=== PATIENT | male | born 1990 | race Caucasian/White ===

== ENCOUNTER 2022-04-03 10:52 | Emergency (ER) | payer BC, SELFPAY ==
[2022-04-03 11:20] VITALS: BP 149/96; PULSE 101; RESP 18; TEMP 37.3; O2SAT 98; BMI 32.3
--- NOTE | 2022-04-03 11:27 | EXP.UTC ---
Discharge Plan Referrals Follow up/Referrals: Provider,Referral, [Primary Care Provider] - See instructions Discharge ED Provider: [facility] General Stated complaint: stomach pain Mode of Arrival: Ambulatory Source of Information: Patient Limitations: No Limitations Time Seen by Provider: 04/03/22 11:27 Description of Symptoms (Recalled from Triage Doc. by RN): ABDMOMINAL PAIN SINCE FRIDAY, NO BOWEL MOVEMENT SINCE FRIDAY. HEENT Symptoms (Recalled from RN notes): No Resp Symptoms (Recalled from RN notes): No Skin Symptoms (Recalled from RN notes): No MS Symptoms (Recalled from RN notes): No Functional Status (Recalled from RN notes): NA History of Present Illness Provider Complaint: Patient states that he eat a [employer] on Friday and started having severe abdominal pain States that he thought he just eat too much so he laid in the floor on his stomach and stuff thinking it would help but didnt States that yesterday was worse so he thought he may have been constipated so he took and xlax and did have some pebble like stool but today he is having sharp pain agains in his upper abdomen States that he is passing gas and last normal BM was on Friday morning States that today pain is bad but not as bad as yesterday he just feels very uncomfortable Related Data Allergies Allergy/AdvReac Type Severity Reaction Status Date / Time No Known Allergies Allergy Verified 04/03/22 11:26 Worker's Comp Is this a Worker's Comp case?: No PFSH PFSH Social History Smoking Status: Unknown if ever smoked alcohol intake: never current occupational status: employed Travel in the last 8 weeks: None ROS Obtained: Yes All systems reviewed & no additional complaints except as documented and Yes Systems reviewed as appropriate & no additional complaints except as documented Constitutional Constitutional: Reports system reviewed and no additional complaints, except as documented, Reports as per HPI and Denies fever(s) ENT Ears, Nose, Mouth, and Throat: Reports system reviewed and no additional complaints, except as documented and Reports as per HPI Cardiovascular Cardiovascular: Reports system reviewed and no additional complaints, except as documented and Reports as per HPI Respiratory Respiratory: Reports system reviewed and no additional complaints, except as documented and Reports as per HPI Gastrointestinal Gastrointestingal: Reports system reviewed and no additional complaints, except as documented, as per HPI and abdominal pain; Denies vomiting Comments: reports normal BM on friday and Friday morning Physical Exam General General appearance: alert and in no apparent distress Respiratory Respiratory exam: Present normal lung sounds bilaterally; Absent respiratory distress Cardiovascular Cardiovascular exam: Present regular rate and normal rhythm Abdominal Exam Abdominal exam: Present tenderness Abdominal tenderness: Present epigastrium, diffuse and moderate (reports pain sharp and uncomfortable /10) Neurological Exam Neurological exam: Present alert, oriented X3 and normal gait Medical Decision Making Fly Inquiry Pt receiving controlled substance: No Fly was queried for this patient: No Vital Signs: 04/03/22 11:20 Temperature 99.1 F Temperature Source Oral Pulse Rate [Radial] 101 H Respiratory Rate 18 Blood Pressure [Right Arm] 149/96 H Blood Pressure Mean [Right Arm] 113 Blood Pressure Source [Right Arm] Automatic Cuff Blood Pressure Position [Right Arm] Sitting 02 Sat by Pulse Oximetry 98 Oxygen Delivery Method Room Air Medical Decision Narrative: Patient reports abdominal pain since Friday reports is a little better since Friday but still reports pain as sharp at times and 7/10 and just uncomfortable Discussed with patient and will transfer to the ED for further work up and evaluation and patient agreed Patient to be moved to room 10
--- NOTE | 2022-04-03 11:40 | PC.NURSE ---
PT TO ED ROOM 10 AT THIS TIME. REPORT GIVEN TO Teodora HARDING RN
--- NOTE | 2022-04-03 11:49 | CT_ITS ---
FINAL REPORT TECHNIQUE: After the administration of intravenous contrast, axial images were obtained through the abdomen and pelvis by computed tomography. This study was performed with technique to keep radiation doses as low as reasonably achievable, (ALARA). Individualized dose reduction techniques using automated exposure control or adjustment of the MA and/or KV according to the patient's size were employed. CLINICAL HISTORY: upper abdominal/lower chest pain FINDINGS: Abdomen: The liver demonstrates mild fatty infiltration. The spleen is enlarged up to 15 cm in length. The adrenals are normal. There is stranding adjacent to the tail the pancreas consistent with mild, acute pancreatitis. The kidneys enhance appropriately. The aorta is normal in caliber. There is no free fluid or adenopathy. Pelvis: The appendix is normal. There is a small amount of pelvic free fluid. The urinary bladder is unremarkable. There is no adenopathy. IMPRESSION: Findings consistent with mild, acute pancreatitis. Fatty infiltration of the liver and splenomegaly. Reviewed, Interpreted and Dictated by Riley Franklin III, MD Transcribed by Maggie Truong Authenticated and [facility]
--- NOTE | 2022-04-03 11:49 | CT_ITS ---
FINAL REPORT TECHNIQUE: Postcontrast axial images of the chest were performed in a CTA protocol. This study was performed with techniques to keep radiation doses as low as reasonably achievable, (ALARA). Individualized dose reduction technique using automated exposure control or adjustment of mA and/or kV according to the patient's size were employed. CLINICAL HISTORY: upper abdominal/lower chest pain FINDINGS: The heart is normal in size. No adenopathy is identified. No pleural or pericardial effusion is identified. The thoracic aorta is normal in caliber with no focal aneurysm or dissection identified. There is no filling defect to suggest pulmonary embolism. No lung infiltrate or mass is identified. There is mild bibasilar atelectasis or scarring. IMPRESSION: No evidence for PE on this exam. Mild bibasilar atelectasis or scarring. Reviewed, Interpreted and Dictated by Riley Franklin III, MD Transcribed by Maggie Truong Authenticated and [facility]
[2022-04-03 11:50] VITALS: BP 169/91; PULSE 120; RESP 16; TEMP 36.8; O2SAT 98; BMI 19.6
--- NOTE | 2022-04-03 12:00 | HMH.EDGENADL ---
Discharge Plan Disposition Patient Disposition: Home, Self-Care Condition: Good Prescriptions Prescriptions: New oxycodone 5 mg tablet 5 mg PO Q8H PRN (Reason: pain) Qty: 12 0RF ondansetron 4 mg tablet,disintegrating 4 mg PO Q8H PRN (Reason: nausea and vomiting) 4 Days Qty: 12 0RF Referrals Follow up/Referrals: Provider,Referral, MD [Primary Care Provider] - See instructions Activity Restrictions/Add. Instructions Additional Instructions/Restrictions: You were evaluated in the emergency department today for abdominal pain and diagnosed with pancreatitis. Please knot picker cloth your prescriptions at the pharmacy and take them as needed for symptoms. Orally hydrate is much as possible. Follow-up with your primary care provider over the next 48 hours. Return to the emergency department for any new or worsening symptoms. Clinical Impressions Clinical Impression: Pancreatitis Qualifiers: Chronicity: acute Pancreatitis type: idiopathic Acute pancreatitis complication: unspecified Qualified Code(s): K85.00 - Idiopathic acute pancreatitis without necrosis or infection Stand Alone Forms Stand Alone Forms: Work/School Release Instructions Patient Instructions: Acute Pancreatitis, DI for Pancreatitis, DI for Acute Abdominal Pain Discharge ED Provider: Merissa Sousa General Adult HPI General Chief complaint: Abdominal Pain Stated complaint: stomach pain Time Seen by Provider: 04/03/22 11:27 Mode of Arrival: Ambulatory Source of Information: Patient Limitations: No Limitations Description of Symptoms (Recalled from ER Triage Doc. by RN): ABDMOMINAL PAIN SINCE FRIDAY, NO BOWEL MOVEMENT SINCE FRIDAY. History of Present Illness HPI narrative: This patient is a 31-year-old male with history of constipation presenting to the emergency department for evaluation of abdominal pain. It is epigastric, severe, and constant in nature. He has not been able to eat or drink much. He did eat some breakfast this morning, however his pain got worse. He denies having a bowel movement since Friday. This does not feel typical of his prior constipation issues. He admits to nausea, but no vomiting. No fevers, chills, blood in stools, dark tarry stools, or other concerns. He does admit to some lower chest pain that is worse when taking a deep breath and coughing. Nothing seems to make his symptoms better. Eating, coughing, and deep breathing become worse. Related Data Previous Rx's Medication Instructions Recorded ondansetron 4 mg disintegrating 4 mg PO Q8H PRN nausea and 04/03/22 tablet vomiting 4 days #12 tabs oxycodone 5 mg tablet 5 mg PO Q8H PRN pain #12 tabs 04/03/22 Allergies Allergy/AdvReac Type Severity Reaction Status Date / Time No Known Allergies Allergy Verified 04/03/22 11:26 PFSH PFSH Social History Smoking Status: Unknown if ever smoked alcohol intake: never current occupational status: employed Travel in the last 8 weeks: None ROS Obtained: Yes All systems reviewed & no additional complaints except as documented 14 point review of systems obtained and negative except otherwise mentioned in HPI. Physical Exam General General appearance: alert and anxious Head Head exam: atraumatic and normocephalic Eye Eye exam: Present normal appearance, PERRL and EOMI ENT ENT exam: Present normal exam and normal oropharynx Neck Neck exam: Present normal inspection Chest Chest inspection: Present normal inspection and symmetric chest wall rise Respiratory Respiratory exam: Present normal lung sounds bilaterally; Absent respiratory distress, wheezes or stridor Cardiovascular Cardiovascular exam: Present normal rhythm and tachycardia Abdominal Exam Abdominal exam: Present soft and tenderness (Epigastric); Absent distention, guarding or rebound Extremities Exam Extremities exam: Present normal inspection; Absent tenderness or edema Back Exam Back exam:
[2022-04-03 12:05] LABS: Basophils # 0.1 K/mm3 (0-0.2); Basophils % 0.8 % (0.1-2.0); Eosinophils # 0.1 K/mm3 (0.0-0.4); Eosinophils % 1.1 % (0.1-12.0); Hematocrit 47.3 % (42.0-52.0); Hemoglobin 16.4 g/dL (14.1-18.0); Mean Corpuscular HGB Conc 34.6 g/dL (31.8-35.4); Mean Corpuscular Hemoglobin 30.2 pg (27.0-31.2); Mean Corpuscular Volume 87.4 fl (80-94); Mean Platelet Volume 8.2 fl (7.4-10.4); Monocytes # 0.6 K/mm3 (0.1-1.0); Monocytes % 6.1 % (1.7-9.3); Neutrophils # 6.7 K/mm3 (1.8-7.8); Platelet Count 301 K/mm3 (142-424); Red Blood Count 5.41 M/mm3 (4.60-6.20); Red Cell Distribution Width 13.1 % (11.5-17.5); White Blood Count 9.5 K/mm3 (4.8-10.8)
[2022-04-03 12:14] LABS: Chloride 97 mmol/L (98-107); Potassium 3.4 mmoL/L (3.5-5.1); Sodium 139 mmol/L (136-145)
[2022-04-03 12:16] LABS: Alanine Aminotransferase 35 U/L (12-78); Aspartate Amino Transferase 34 U/L (17-59); Blood Urea Nitrogen 12 mg/dl (9-20); Creatinine Clearance Estimated 169 mL/min (50-200); Estimated Glomerular Filt Rate 97 ml/min (>60); GFR (African American) 118 ML/MIN (>60)
[2022-04-03 12:17] LABS: Albumin Level 4.7 g/dl (3.5-5.0); Albumin/Globulin Ratio 1.4 (1.1-1.8); Alkaline Phosphatase 64 U/L (38-126); Anion Gap 15.4 mEq/L (5-15); Bilirubin,Total 1.1 mg/dl (0.2-1.3); Calcium 8.9 mg/dl (8.4-10.2); Carbon Dioxide 30 mmol/L (22.0-30.0); Globulin 3.4 g/dL (1.3-3.2); Glucose 106 mg/dl (74-100); Lipase 1597 U/L (23-300); Total Protein,Serum 8.1 g/dl (6.3-8.2)
--- NOTE | 2022-04-03 12:17 | ECG_ITS ---
APPROVED REPORT Exam: Resting ECG HR:104 bpm ECG Measurements Heart Rate 104 AXES AZ 132 P 50 QRSd 92 QRS 30 QT 321 T 29 QTc 381 Conclusion SINUS TACHYCARDIA POSSIBLE LEFT ATRIAL ENLARGEMENT [-0.1mV P-WAVE IN V1/V2] POSSIBLE RIGHT VENTRICULAR CONDUCTION DELAY [RSR (QR) IN V1/V2] NONSPECIFIC T-WAVE ABNORMALITY ABNORMAL RHYTHM ECG UNCONFIRMED REPORT Electronically signed by : Marshall Lopez MD 04/03/2022 21:56:04
[2022-04-03 13:00] VITALS: BP 123/90; PULSE 96; RESP 18; O2SAT 98
--- NOTE | 2022-04-03 14:06 | PC.NURSE ---
PT DOING A PO CHALLENGE WITH NO PROBLEMS
[2022-04-03 15:10] VITALS: BP 110/85; PULSE 88; RESP 20; TEMP 36.9; O2SAT 97
== END 2022-04-03 15:27 | disposition home or self-care (01) ==
LOC: UTC 11:03 → ER 11:44
PROVIDERS: Emergency Provider Emergency Medicine
DX: K85.90 Acute pancreatitis without necrosis or infection, unspecified (principal)
CPT/HCPCS: 71275; 74177; 80053; 83690; 85025; 93005; 96365; 96375; 99285; J2405; Q9967

== ENCOUNTER 2023-05-13 10:19 | Emergency (ER) | payer BC, SELFPAY ==
--- NOTE | 2023-05-13 10:48 | EXP.UTC ---
Discharge Plan Disposition Patient Disposition: Home, Self-Care Condition: Good Prescriptions Prescriptions: New prednisone 10 mg tablet 10 mg PO BID 3 Days Qty: 6 0RF amoxicillin [amoxicillin] 400 mg/5 mL suspension for reconstitution 875 mg PO BID 10 Days Qty: 218.75 0RF wnucapixjdyqypr-deqgvqtws-OA [Bromfed DM] 2-30-10 mg/5 mL Syrup 5 ml PO Q6H PRN (Reason: Cough) Qty: 240 0RF No Action oxycodone 5 mg tablet 5 mg PO Q8H PRN (Reason: pain) Qty: 12 0RF ondansetron 4 mg tablet,disintegrating 4 mg PO Q8H PRN (Reason: nausea and vomiting) 4 Days Qty: 12 0RF Referrals Follow up/Referrals: Nazia Escalante [Primary Care Provider] - See instructions Activity Restrictions/Add. Instructions Additional Instructions/Restrictions: Drink plenty of fluids. Take tylenol or ibuprofen for pain or fever. Take the medications as directed. Follow up with your regular doctor. GO TO THE ER FOR ANY WORSENING SYMPTOMS Clinical Impressions Clinical Impression: Strep throat Stand Alone Forms Stand Alone Forms: Work/School Release Instructions Patient Instructions: DI for Strep Throat, Strep Throat Discharge ED Provider: Ron Escobedo [facility] General Stated complaint: sore throat, body aches, dizziness Time Seen by Provider: 05/13/23 10:48 History of Present Illness Provider Complaint: He states that for the past 2 days he has had sore throat, chills, body aches and low grade fever. Related Data Previous Rx's Medication Instructions Recorded ondansetron 4 mg disintegrating 4 mg PO Q8H PRN nausea and 04/03/22 tablet vomiting 4 days #12 tabs oxycodone 5 mg tablet 5 mg PO Q8H PRN pain #12 tabs 04/03/22 amoxicillin 400 mg/5 mL oral 875 mg (10.9375 mL) PO BID 10 days 05/13/23 suspension #218.75 mL topqluhbhfcwphi-kosvsrjmgbxybba-ZN 5 ml PO Q6H PRN Cough #240 mL 05/13/23 2 mg-30 mg-10 mg/5 mL oral syrup (Bromfed DM) prednisone 10 mg tablet 10 mg PO BID 3 days #6 tabs 05/13/23 Allergies Allergy/AdvReac Type Severity Reaction Status Date / Time No Known Allergies Allergy Verified 04/03/22 11:26 [facility] Disclaimer: The information contained in this section may have been updated after the patient was seen, as this information can be updated by other users. Social History Smoking Status: Unknown if ever smoked alcohol intake: never current occupational status: employed Travel in the last 8 weeks: None ROS Obtained: Yes All systems reviewed & no additional complaints except as documented Constitutional Constitutional: Reports chills and Reports fever(s) Eyes Eyes: Denies eye discharge ENT Ears, Nose, Mouth, and Throat: Reports as per HPI Cardiovascular Cardiovascular: Denies chest pain Respiratory Respiratory: Denies chest congestion and Reports cough Gastrointestinal Gastrointestingal: Reports nausea; Denies abdominal pain, constipation, cramping, diarrhea or vomiting Musculoskeletal Musculoskeletal: Denies arthralgias Integumentary/Breasts Skin/Breast: Denies rash Neurologic Neurologic: Denies paresthesias Physical Exam General General appearance: alert and in no apparent distress Head Head exam: atraumatic, normocephalic and normal inspection Eye Eye exam: Present normal appearance, PERRL and EOMI ENT ENT exam: Present mucous membranes moist and normal external ear exam Expanded ENT Exam TM/Canal exam: Bilateral TM: erythema and bulging Nose exam: Absent sinus tenderness Mouth exam: Present normal external inspection; Absent drooling Teeth exam: Present normal inspection Throat exam: Present tonsillar erythema, tonsillomegaly and tonsillar exudate Neck Neck exam: Present normal inspection, full ROM and trachea midline; Absent tenderness, meningismus or lymphadenopathy Chest Chest inspection: Present normal inspection and symmetric chest wall rise; Absent tenderness Respiratory Respiratory ex
[2023-05-13 11:30] VITALS: BP 154/87; PULSE 110; RESP 18; TEMP 37.1; O2SAT 97; BMI 33.7
[2023-05-13 11:39] LABS: UTC Strep Screen (Rapid) Positive (Negative)
[2023-05-13 11:40] LABS: UTC Influenza A Antigen Negative (Negative); UTC Influenza B Antigen Negative (Negative)
[2023-05-13 12:08] VITALS: BP 154/87; PULSE 110; RESP 18; TEMP 37.1; O2SAT 97
== END 2023-05-13 12:00 | disposition home or self-care (01) ==
PROVIDERS: Emergency Provider Nurse Practitioner Family; PCP Nurse Practitioner Family
DX: J02.0 Streptococcal pharyngitis (principal); R07.0 Pain in throat; R50.9 Fever, unspecified
CPT/HCPCS: 87804; 87880; 99204; 99212; G0463

== ENCOUNTER 2023-12-12 18:24 | Emergency (ER) | payer BC, SELFPAY ==
[2023-12-12 18:35] VITALS: BP 142/92; PULSE 94; RESP 18; TEMP 37.4; O2SAT 99; BMI 32.3
--- NOTE | 2023-12-12 18:45 | EXP.UTC ---
Discharge Plan Disposition Patient Disposition: Home, Self-Care Condition: Good Prescriptions Prescriptions: New amoxicillin 875 mg tablet 875 mg PO Q12H Qty: 20 0RF methylprednisolone 4 mg Tablets,Dose Pack 4 mg PO DIRECTED 6 Days Qty: 21 0RF Rx Instructions: Take 1 pack as directed for 6 days bgbtcfqwxxhtejw-pheskeikk-UP [Bromfed DM] 2-30-10 mg/5 mL Syrup 5 ml PO Q6H PRN (Reason: Cough) Qty: 240 0RF Referrals Follow up/Referrals: Nazia Escalante [Primary Care Provider] - See instructions Activity Restrictions/Add. Instructions Additional Instructions/Restrictions: Drink plenty of fluids. Take tylenol or ibuprofen for pain or fever. Take the medications as directed. Follow up with your regular doctor. GO TO THE ER FOR ANY WORSENING SYMPTOMS Clinical Impressions Clinical Impression: Pharyngitis Instructions Patient Instructions: Sore Throat, DI for Pharyngitis/Tonsillopharyngitis -- Adult, Methylprednisolone, Amoxicillin Discharge ED Provider: Ron Escobedo [facility] General Stated complaint: sore throat Mode of Arrival: Ambulatory Source of Information: Patient Limitations: No Limitations Time Seen by Provider: 12/12/23 18:45 Description of Symptoms (Recalled from Triage Doc. by RN): PATIENT C/O SORE THROAT SINCE FRIDAY MORNING HEENT Symptoms (Recalled from RN notes): Yes Resp Symptoms (Recalled from RN notes): No Skin Symptoms (Recalled from RN notes): No MS Symptoms (Recalled from RN notes): No Functional Status (Recalled from RN notes): WNL Related Data Previous Rx's Medication Instructions Recorded amoxicillin 875 mg tablet 875 mg PO Q12H #20 tabs 12/12/23 tcmzqcrfdlsfilf-taapmpphhrzbnlp-YM 5 ml PO Q6H PRN Cough #240 mL 12/12/23 2 mg-30 mg-10 mg/5 mL oral syrup (Bromfed DM) methylprednisolone 4 mg tablets in 4 mg PO DIRECTED 6 days #21 tabs 12/12/23 a dose pack Allergies Allergy/AdvReac Type Severity Reaction Status Date / Time No Known Allergies Allergy Verified 05/13/23 11:51 Worker's Comp Is this a Worker's Comp case?: No [facility] Disclaimer: The information contained in this section may have been updated after the patient was seen, as this information can be updated by other users. Medical History (Updated 12/12/23 @ 19:12 by Ron Escobedo APRN) No significant past medical history Surgical History (Updated 12/12/23 @ 18:41 by Anahi Aquino RN) No significant past surgical history Social History Smoking Status: Unknown if ever smoked alcohol intake: never current occupational status: employed Travel in the last 8 weeks: None ROS Obtained: Yes All systems reviewed & no additional complaints except as documented Constitutional Constitutional: Reports chills and Reports fever(s) Eyes Eyes: Denies eye discharge ENT Ears, Nose, Mouth, and Throat: Reports as per HPI Cardiovascular Cardiovascular: Denies chest pain Respiratory Respiratory: Denies chest congestion and Reports cough Gastrointestinal Gastrointestingal: Reports nausea; Denies abdominal pain, constipation, cramping, diarrhea or vomiting Musculoskeletal Musculoskeletal: Denies arthralgias Integumentary/Breasts Skin/Breast: Denies rash Neurologic Neurologic: Denies paresthesias Physical Exam General General appearance: alert and in no apparent distress Head Head exam: atraumatic, normocephalic and normal inspection Eye Eye exam: Present normal appearance, PERRL and EOMI ENT ENT exam: Present mucous membranes moist and normal external ear exam Expanded ENT Exam TM/Canal exam: Bilateral TM: erythema and bulging Nose exam: Absent sinus tenderness Mouth exam: Present normal external inspection; Absent drooling Teeth exam: Present normal inspection Throat exam: Present tonsillar erythema, tonsillomegaly and tonsillar exudate Neck Neck exam: Present normal inspection, full ROM and trachea midline; Absent tenderness, meningismus or lymphadenopathy Chest Chest inspection: Present normal inspection and symmetric chest wall rise; Absent tenderness Respiratory Respiratory exam: Present normal lung sounds bilaterally; Absent respiratory distress, wheezes, stridor or accessory muscle use Cardiovascular Cardiovascular exam: Present regular rate and normal rhythm; Absent systolic murmur or diastolic murmur Abdominal Exam Abdominal exam: Present soft and normal bowel sounds; Absent distention, tenderness, guarding, rebound or rigidity Extremities Exam Extremities exam: Present normal inspection and normal capillary refill; Absent calf tenderness Back Exam Back exam: Present normal inspection and full ROM; Absent tenderness, CVA tenderness (R) or CVA tenderness (L) Neurological Exam Neurological exam: Present alert, oriented X3 and CN II-XII intact Psychiatric Psychiatric exam: Present normal affect and normal mood Skin Skin exam: Present warm, dry, intact and normal color Medical Decision Making Medical Records Medical records reviewed: No I reviewed the patient's medical records. Fly Inquiry Pt receiving controlled substance: No Vital Signs: 12/12/23 18:35 Temperature 99.4 F Temperature Source Oral Pulse Rate [Left Brachial] 94 H Respiratory Rate 18 Blood Pressure [Left Arm] 142/92 H Blood Pressure Mean [Left Arm] 108 Blood Pressure Source [Left Arm] Automatic Cuff Blood Pressure Position [Left Arm] Sitting 02 Sat by Pulse Oximetry 99 Oxygen Delivery Method Room Air Lab Data Lab results reviewed: Yes I reviewed the patient's lab results.
[2023-12-12 18:48] LABS: UTC Strep Screen (Rapid) Negative (Negative)
[2023-12-12 19:20] VITALS: BP 142/92; PULSE 94; RESP 18; TEMP 37.4; O2SAT 99
--- NOTE | 2023-12-14 08:42 | PC.NURSE ---
Reviewed strep confirmation results which are negative. No further action required.
== END 2023-12-12 19:23 | disposition home or self-care (01) ==
PROVIDERS: Emergency Provider Nurse Practitioner Family; PCP Nurse Practitioner Family
DX: J02.9 Acute pharyngitis, unspecified (principal)
CPT/HCPCS: 87880; 99212; 99214; G0463